=== PATIENT | female | born 1960 | race Caucasian/White ===

== ENCOUNTER 2018-04-05 07:44 | Inpatient (IN) ==
[2018-04-05] MEDS ORDERED: Albuterol 2.5 MG/3 ML NEBULIZER IH ONE (08:08)
[2018-04-05] MEDS ORDERED: CeFAZolin Syr 2,000MG/20 ML 2,000 MG/20 ML SYRINGE IVPB ONE (08:08)
[2018-04-05] MEDS ORDERED: Ringers Solution, Lactated 1,000 ML IVC SCH (08:15)
[2018-04-05] MEDS ORDERED: Famotidine 20 MG/2 ML VIAL IVP ONE (08:36)
[2018-04-05] MEDS ORDERED: Gabapentin 300 MG CAPSULE PO ONE (08:37)
--- NOTE | 2018-04-05 09:15 | Anesthesia Evaluation PreOp ---
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 Significant HX Other Medical History: Thyroid, GERD Anesthesia History: No Prior Anesthetic Complications : No Alcohol Use: none Medications and Allergies Atenolol/Chlorthalidone [Tenoretic 100 Tablet] 1 tab PO DAILY 04/05/18 [History] Gabapentin [Neurontin] 600 mg PO TID 04/05/18 [History] Levothyroxine Sodium 25 mcg PO QAM 04/05/18 [History] Levothyroxine Sodium 75 mcg PO QPM 04/05/18 [History] Lidocaine [Lidocaine] 1 patch TD DAILY 04/05/18 [History] Lisinopril [Zestril] 20 mg PO DAILY 04/05/18 [History] Loratadine [Allergy Relief] 10 mg PO DAILY 04/05/18 [History] Multivit-Min/FA/Lycopen/Lutein [Adults 50+ Multivitamin Tablet] 1 tab PO DAILY 04/05/18 [History] [place]-3/Dha/Epa/Fish Oil [Fish Oil 1,000 mg Softgel] 1 cap PO DAILY 04/05/18 [ History] Oxybutynin [Ditropan] 5 mg PO BID 04/05/18 [History] SUMAtriptan Succinate [Imitrex] 100 mg PO Q2H PRN 04/05/18 [History] Tiotropium [place] [Spiriva Respimat] 1 puff IH DAILY 04/05/18 [History] Tizanidine HCl [Tizanidine HCl] 4 mg PO HS 04/05/18 [History] 3 Allergy/AdvReac Type Severity Reaction Status Date / Time No Known Allergies Allergy Verified 04/05/18 08:36 - Meds/Allergy Pre-op Review Medications Reviewed: Yes Allergies Reviewed: Yes Beta Blockers on Current Med List: No Anesthesia Results - Labs Laboratory Tests 04/01/18 04/01/18 04/01/18 12:20 12:20 12:20 Hgb 13.1 Hct 38.1 Plt Count 284 PT 11.5 INR 1.0 APTT 38.7 H Sodium 132 L Potassium 4.1 BUN 17 Creatinine 0.85 - Imaging EKG: report reviewed (SR) Anesthesia Exam O2 Sat Height 1.73 m Height 1.73 m Height 1.73 m Weight 92.079 kg Weight 92.079 kg Weight 92.079 kg O2 Sat by Pulse Oximetry 96 Vital Signs Temp Pulse Resp BP Pulse Ox 98.7 F 70 18 175/80 96 04/05/18 08:11 04/05/18 08:11 04/05/18 08:11 04/05/18 08:11 04/05/18 08:11 Height: 5'8 Weight: 203 lbs NPO (# of Hours): MN Pain Scale: 0 - HEENT Pupil (Motor): Pupils equal, EOMI Mallampati: III Teeth: Missing Oral Opening: Less than or equal to 3 - SALES CLERK FO[employer] LOC: Oriented SALES CLERK FOOD Motor: Normal RUE, Normal LUE, Normal RLE, Normal LLE, Normal Face SALES CLERK FO[employer] Sensory: Normal: RUE, LUE, RLE, LLE, Face - Cardiac Rhythm: Regular Murmur: None JVD: No Carotid Bruit: No - Pulmonary Breath Sounds: bilateral Clear Respiratory Effort: Symmetrical Anesthesia Assess/Plan ASA Score: 2 Modified [place]iny Scale for Level of Consciousness: Cooperative, oriented, and tranquil Anesthetic Plan: General, Regional Monitoring Plan: Standard Monitors Recovery Plan: PACU (Discussed GA and RA, agrees to proceed)
[2018-04-05] MEDS ORDERED: Lidocaine -MPF 4% 5 ML AMPUL ONE (09:32)
[2018-04-05] MEDS ORDERED: Lidocaine -MPF 2% 2 ML VIAL ONE (09:32)
[2018-04-05] MEDS ORDERED: Ondansetron 4 MG/2 ML VIAL ONE (09:32)
[2018-04-05] MEDS ORDERED: Dexamethasone 4 MG/ML VIAL ONE ×2 (09:32→09:37)
[2018-04-05] MEDS ORDERED: *HR* Succinylcholine 200 MG/10 ML VIAL IVP ONE (09:32)
[2018-04-05] MEDS ORDERED: *HR* Propofol 200 MG/20 ML VIAL IVP ONE ×2 (09:33→11:36)
[2018-04-05] MEDS ORDERED: *HR* FentaNYL (PF) 100 MCG/2 ML VIAL ONE ×2 (09:33→10:09)
[2018-04-05] MEDS ORDERED: *HR* Midazolam HCl 2 MG/2 ML VIAL ONE ×2 (09:33→10:09)
--- NOTE | 2018-04-05 09:35 | History & Physical Report ---
Date of Encounter: 04/05/18 Time of Encounter: 09:35 24 Hour HP Update - Instructions Instructions: If the History and Physical is less than 30 days old and was completed prior to A.M. admission and or procedure and has NOT been updated on calendar day of procedure please complete this update prior to performing procedure. - Update Patient reports changes in Medical Condition: No Changes in examination, assessment, or condition: No Changes in Medication: No Preop tests/diagnostics Reviewed: Yes Surgery Remains Indicated: Yes Consent for Planned Operative Procedure(s) Verified: Yes - Pre-Operative Checklist Preoperative Checklist Indicated: No Prophylactic Antibiotic Ordered: Yes Is VTE Prophylaxis Indicated?: Yes
[2018-04-05] MEDS ORDERED: Morphine Sulfate/PF 5mg/10mL Vial ONE (09:51)
[2018-04-05] MEDS ORDERED: ROPIVACAINE HCL/PF 0.5% 30 ML VIAL ONE (09:52)
[2018-04-05] MEDS ORDERED: Lidocaine -MPF 2% 5 ML VIAL ONE (10:12)
--- NOTE | 2018-04-05 10:38 | Anesthesia Procedures ---
Date of Encounter: 04/05/18 Time of Encounter: 09:15 Procedures: Anesthesia - Epidural/Spinal Patient ID/Chart reviewed: Yes Patient examined: Yes Consent Obtained: Yes Supplemental Oxygen: Nasal Cannula (2) Sedation: Versed (mg): 4 Sedation: Fentanyl (mcg): 100 Site Prep: Aseptic Technique, 0.5% Chlorhexidine/Alcohol Patient position: upright Local Anesthetic: Lidocaine 1% Amount of Local Anesthetic used: 5 Interspace Used: L4-L5 Blood: No CSF: Yes Paresthesia: No Spinal Needle Gauge: 22 Spinal Dose: 10 mg isobaric marcaine, duramorph 0.25mg Vitals + FHT's: Vital Signs/O2 Sat/Glucose, Most Current Temp Pulse Resp BP Pulse Ox 04/05/18 09:53 68 128/64 97 04/05/18 08:11 98.7 F 70 18 175/80 96
[2018-04-05] MEDS ORDERED: Propofol 500 MG/50 ML INFUS..BTL ONE (10:48)
[2018-04-05] MEDS ORDERED: *HR* OxyCODONE/APAP 5/325 TABLET PO PRN ×2 (11:22→14:28)
--- NOTE | 2018-04-05 11:35 | Orthopedic Operative Note ---
Date of procedure: 04/05/18 Pre-op diagnosis: Right knee arthritis Post-op diagnosis: same Procedure: Procedure: Right Total knee replacement Estimated blood loss: 200 cc Hardware: Metal and polyethylene replacement. Arthrex Femur: 6 Tibia:6 PS insert: 8 Patella:40 Exam Under anesthesia: Full flexion and extension no varus valgus instability Procedural Notes: Grade 4 arthritic changes medial compartment patellofemoral joint. Operative procedure: The patient was brought to the operating room and placed on the operating room table. After general anesthesia was administered the operative knee was examined. Findings were noted in the exam under anesthesia. The operative extremity was prepped and draped in sterile surgical fashion. The patient received IV antibiotics prior to skin incision. A standard midline incision was made centered over the patella. The incision was made through the skin and subcutaneous tissue. A medial parapatellar tendon approach was performed. Care was taken to preserve tissue along the medial aspect of the patella. And to protect the patella tendon. The deep MCL was released off the medial tibia. The infra patella fat pad was excised. Knee was brought into flexion. Patient noted to have grade 4 arthritic changes medial compartment and patellofemoral joint. The entry hole was made for the intramedullary femoral guide. The guide was seated in 6 degrees of valgus. Anterior cut was made followed by the distal cut. The ACL the PCL the medial and the lateral menisci were excised. The tibia was subluxed forward. The entry hole was made for the intramedullary tibial guide. Guide was seated to resect 2 mm off the more abnormal side. The knee was brought into flexion the distal femur was sized to a 6. The femoral guide was seated, the anterior cut was made followed by the posterior condylar cut, followed by the chamfer cuts. The finishing guide was seated the box cut was made and the lug holes were drilled. The tibia was sized to a 6, the tibial tray was seated and prepared with the large drill followed by the fin cutter. Trial reduction revealed full extension no varus valgus instability with the appropriate 8 PS Liz. The patella was everted and cut was made at the level of the insertion of the quadriceps and patella tendon. The patella was sized to a 40 the guide was seated and the lug holes are drilled. Trial reduction revealed excellent patella tracking. All trial components were removed all bony surfaces were irrigated. The tibia was cemented first followed by the femur. 8 PS Liz was seated and the knee was brought into full extension. The patella was cemented and held in place with the patellar holding clamp. After the cement had hardened, the knee sat for 2 minutes with a antibacterial solution. The knee was then irrigated out with 2 L of pulse irrigation. The PA close the knee. The extensor mechanism was closed with #2 FiberWire suture and #2 PDS suture. The subcutaneous tissue was then irrigated and closed deep with #1 PDS suture superficially with 0 PDS suture and skin was closed with skin lashawn. The patient was then placed in a sterile dressing and a postoperative brace extubated and transferred to recovery room in stable condition. Anesthesia: GETA Surgeon: Elpidio Hanna Was there an phys assistant present: No Estimated blood loss (cc): 200 Condition: stable Disposition: PACU
--- NOTE | 2018-04-05 12:46 | Anesthesia Evaluation Post Op ---
Date of Encounter: 04/05/18 Time of Encounter: 12:45 - Vital Signs Vital Signs: Vital Signs/O2 Sat/Glucose, Most Current Temp Pulse Resp BP Pulse Ox 04/05/18 12:38 97.0 F L 44 16 131/66 98 04/05/18 12:28 48 16 121/68 92 04/05/18 12:18 49 15 121/70 95 04/05/18 12:08 97.4 F L 67 15 111/74 94 04/05/18 09:53 68 128/64 97 - Lungs Lungs: Clear Ascult./Percussion - Airway Airway: Non-obstructed - Cardiovascular Regular Rate - Mental Status Mental Status: Alert & Oriented, Answers Appropriately - Pain Pain Scale: 0 - Nausea Vomiting Nausea Vomiting: Not Present - Hydration Hydration: Ice chips - Discharge PostOp Status: Transfer Patient to floor
--- NOTE | 2018-04-05 12:48 | Anesthesia Procedures ---
Date of Encounter: 04/05/18 Time of Encounter: 10:00 Procedures: Anesthesia - Nerve Block Procedure Date: 04/05/18 Time: 10:40 Pre-op Diagnosis: Rt Knee OA Surgical Procedure: Rt TKA Checklist: Correct Patient Identifier Correct side: Right Blood Thinner: No Monitor Applied: EKG, BP, Pulse Oximetry Supplemental Oxygen via Nasal Cannula (L/min): 2 Sedation: Versed (mg): 4 Sedation: Fentanyl (mcg): 100 Indication: Post Op Analgesia Pre-op Neuro Deficits: No Block Type: Other (Adductor Canal) Catheter placed: No Depth at skin (cm): 3 Sterile Technique: Yes Ultrasound used: Yes Anatomy identified: Yes Visual spread of Local: Yes Neuro Stimulation: No Blood on Needle Aspiration: No Smooth Injection of Local: Yes Pain with Injection of Local: No Prep: Chlorhexadine Needle: 21 x 100 mm Stimuplex Local: Tetracaine, Ropivacaine Volume (cc): 30 Number of Attempts: 1 Complications: None/effective block Vitals: Vital Signs/O2 Sat/Glucose, Most Current Temp Pulse Resp BP Pulse Ox 04/05/18 12:38 97.0 F L 44 16 131/66 98 04/05/18 12:28 48 16 121/68 92 04/05/18 12:18 49 15 121/70 95 04/05/18 12:08 97.4 F L 67 15 111/74 94 04/05/18 09:53 68 128/64 97
[2018-04-05 14:25] LABS: Hematocrit 40.5 % (35.3-44.9); Hemoglobin 13.8 g/dL (11.5-15.4)
[2018-04-05] MEDS ORDERED: Ondansetron 4 MG/2 ML VIAL IVP PRN (14:28)
[2018-04-05] MEDS ORDERED: SUMAtriptan succinate 50 MG TABLET PO PRN (14:28)
[2018-04-05] MEDS ORDERED: traMADol 50 MG TABLET PO PRN (14:28)
[2018-04-05] MEDS ORDERED: Sennosides 8.6 MG TABLET PO PRN (14:28)
[2018-04-05] MEDS ORDERED: Temazepam 15 MG CAPSULE PO PRN (14:28)
[2018-04-05] MEDS ORDERED: Naloxone 0.4 MG/ML INJ IVP PRN (14:28)
[2018-04-05] MEDS ORDERED: MOM Conc 10 ML UD.LIQ PO PRN (14:28)
[2018-04-05] MEDS: Gabapentin 300 MG CAPSULE PO SCH ×2 (15:58→21:08)
[2018-04-05] MEDS: Ringers Solution, Lactated 1,000 ML IVC SCH (15:58)
[2018-04-05] MEDS: *HR* Enoxaparin 30 MG/0.3 ML SYRINGE SQ SCH (17:05)
[2018-04-05] MEDS ORDERED: *HR* Enoxaparin 30 MG/0.3 ML SYRINGE SQ SCH (18:00)
[2018-04-05] MEDS ORDERED: tiZANidine 4 MG TABLET PO SCH (21:00)
[2018-04-05] MEDS: *HR* OxyCODONE Immed Rel 5 MG TABLET PO PRN (21:11)
[2018-04-06] MEDS: Nicotine 7 MG PATCH.TD24 TD SCH ×2 (00:08→10:06)
[2018-04-06 01:52] LABS: Hematocrit 30.3 % (35.3-44.9)
[2018-04-06 01:55] LABS: Hemoglobin 9.9 g/dL (11.5-15.4)
[2018-04-06] MEDS: *HR* Enoxaparin 30 MG/0.3 ML SYRINGE SQ SCH (06:12)
[2018-04-06] MEDS ORDERED: Levothyroxine 25 MCG TABLET PO SCH (06:30)
--- NOTE | 2018-04-06 06:43 | Orthopedics Progress Note ---
Date of Encounter: 04/06/18 Time of Encounter: 06:43 - Assessment and Plan (1) Acute blood loss anemia Current Visit: Yes Status: Acute Subjective Interval history: Patient was seen this morning doing well without complaints. Afebrile vital signs stable. Operative extremity: Neurovascularly intact Dressing clean dry and intact Calves nontender Assessment and plan: Continue with postoperative care Hemoglobin 9.9 patient asymptomatic acute blood loss anemia discharge today Objective Vital signs: Vital Signs Temp Pulse Resp BP Pulse Ox 04/06/18 03:07 97.5 F L 78 16 115/68 94 04/05/18 23:53 98.1 F 73 16 107/61 92 04/05/18 19:52 97.7 F 69 16 111/68 93 04/05/18 13:50 97.3 F L 53 16 119/67 93 04/05/18 12:48 97.0 F L 51 16 125/77 99 04/05/18 12:38 97.0 F L 44 16 131/66 98 04/05/18 12:28 48 16 121/68 92 04/05/18 12:18 49 15 121/70 95 04/05/18 12:08 97.4 F L 67 15 111/74 94 04/05/18 09:53 68 128/64 97 04/05/18 08:11 98.7 F 70 18 175/80 96 Intake and Output 04/05/18 04/05/18 04/06/18 15:59 23:59 07:59 Intake Total 100 / 100 300 / 300 Output Total 400 / 400 300 / 300 Balance -300 / -300 0 / 0 Intake: IV Fluids 100 / 100 Ancef 2,000 MG In 0.9 % Sodium 100 / 100 Chloride 100 ML @ 200 mls/hr IVPB Q8HR [facility] Rx#:[id number] Oral 100 / 100 200 / 200 Output: Urine 300 / 300 Estimated Blood Loss 400 / 400 Other: Meal Dinner Percent of Meal Consumed 100% # Voids 1 Weight 92.079 kg - Labs CBC & BMP: 04/06/18 01:22 Labs: Abnormal lab results Hgb 9.9 g/dL (11.5-15.4) L D 04/06/18 01:22 Hct 30.3 % (35.3-44.9) L 04/06/18 01:22 - VTE Documentation of Mechanical Device: Venous foot pump, device Consult Discharge Plan - Plan Referrals: DAVID COVINGTON [Primary Care Provider] - Светлана Blackwell [Family Provider] - Prescriptions: Aspirin Enteric Coated [Aspirin EC] 325 mg PO BID #20 tablet.dr JustinDONNeno Immed Rel [Roxicodone 5 MG] 5 mg PO Q6HR PRN 7 Days #28 tablet PRN Reason: Severe Pain
[2018-04-06] MEDS ORDERED: ATENOLOL PO SCH (09:00)
[2018-04-06] MEDS ORDERED: CHLORTHALIDONE PO SCH (09:00)
[2018-04-06] MEDS ORDERED: Lisinopril 20 MG TABLET PO SCH (09:00)
[2018-04-06] MEDS ORDERED: Loratadine 10 MG TABLET PO SCH (09:00)
[2018-04-06] MEDS ORDERED: Multivit/Ca/Min/Fe/FA 1 TAB TABLET PO SCH (09:00)
[2018-04-06] MEDS ORDERED: NON-FORMULARY MEDICATION 1 EACH EACH (Omega-3/Dha/Epa/Fish Oil [Fish Oil 1,000 Mg Softgel] PO SCH (09:00)
[2018-04-06] MEDS ORDERED: [UNRECOGNIZED DRUG - OTHER] PO SCH (09:00)
[2018-04-06] MEDS ORDERED: NON-FORMULARY MEDICATION 1 EACH EACH (Multivit-Min/Fa/Lycopen/Lutein [Adults 50+ Multivita PO SCH (09:00)
[2018-04-06] MEDS ORDERED: Tiotropium 18 MCG inhalation IH SCH (10:00)
[2018-04-06] MEDS: *HR* OxyCODONE Immed Rel 5 MG TABLET PO PRN (10:06)
[2018-04-06] MEDS: Gabapentin 300 MG CAPSULE PO SCH ×2 (10:06→15:18)
[2018-04-06] MEDS: Ringers Solution, Lactated 1,000 ML IVC SCH (10:08)
[2018-04-06 12:10] VITALS: BP 113/60
--- NOTE | 2018-04-06 16:47 | Discharge Summary ---
Orders not resulted at time of discharge: Pending orders 04/05/18 09:17 US anesthesia pain block [US] Routine 04/05/18 11:35 Surgical Pathology [PTH] Routine Date of Encounter: 04/06/18 Time of Encounter: 13:00 - Discharge Diagnosis (1) Status post total knee replacement, right Priority: Primary Status: Acute (2) Arthritis of knee, right Priority: Primary Status: Acute (3) HTN (hypertension) Priority: Secondary Status: Chronic Qualifiers: Hypertension type: essential hypertension Qualified Code(s): I10 - Essential (primary) hypertension (4) Obesity Priority: Secondary Status: Chronic Qualifiers: Obesity type: unspecified obesity type Obesity classification: adult class 3 (BMI >= 40) Serious obesity comorbidity presence: without serious comorbidity Body mass index: unspecified BMI Qualified Code(s): E66.9 - Obesity, unspecified - Hospital Course Hospital course: Ms. Fairbanks is a 57 year old female, S/P Right TKR. Patient seen at bedside, without complaints. A&O x 3 Afebrile, vital signs stable. Labs reviewed. H/H - stable, asymptomatic - . Plan to repeat H/H on Thursday. Pain control: adequate Participating in PT. All questions and concerns addressed. Educated on use of incentive spirometer. Encouraged ambulation and proper hydration. Patient educated on post-operative restrictions and post-operative care. Assessment and plan: Continue with postoperative care Discharge plan: Home, discharge today with outpatient PT. Patient agreeable to discharge. - Time Spent with Patient Total time spent providing and/or coordinating discharge services: Less than 30 minutes - Discharge Medications Prescriptions: OxyCODONE Immed Rel [Roxicodone 5 MG] 5 mg PO Q6HR PRN 7 Days #28 tablet PRN Reason: Severe Pain Aspirin Enteric Coated [Aspirin EC] 325 mg PO BID #20 tablet. Home Medications: Aspirin Enteric Coated [Aspirin EC] 325 mg PO BID #20 tablet. 04/05/18 [Rx] Atenolol/Chlorthalidone [Tenoretic 100 Tablet] 1 tab PO DAILY 04/05/18 [History] Gabapentin [Neurontin] 600 mg PO TID 04/05/18 [History] Levothyroxine Sodium 25 mcg PO QAM 04/05/18 [History] Levothyroxine Sodium 75 mcg PO QPM 04/05/18 [History] Lidocaine [Lidocaine] 1 patch TD DAILY 04/05/18 [History] Lisinopril [Zestril] 20 mg PO DAILY 04/05/18 [History] Loratadine [Allergy Relief] 10 mg PO DAILY 04/05/18 [History] Multivit-Min/FA/Lycopen/Lutein [Adults 50+ Multivitamin Tablet] 1 tab PO DAILY 04/05/18 [History] [place]-3/Dha/Epa/Fish Oil [Fish Oil 1,000 mg Softgel] 1 cap PO DAILY 04/05/18 [ History] OxyCODONE Immed Rel [Roxicodone 5 MG] 5 mg PO Q6HR PRN 7 Days #28 tablet [Rx] Oxybutynin [Ditropan] 5 mg PO BID 04/05/18 [History] Tiotropium [place] [Spiriva Respimat] 1 puff IH DAILY 04/05/18 [History] Tizanidine HCl [Tizanidine HCl] 4 mg PO HS 04/05/18 [History] Allergies/Adverse Reactions: 3 Allergy/AdvReac Type Severity Reaction Status Date / Time sumatriptan [From Imitrex] Allergy Difficulty Verified 04/05/18 16:00 Breathing Date of admission: 04/05/18 13:48 Primary care physician: Abigail Mcdaniel Consults: 04/05/18 14:28 Consult to Occupational Therapy [CONS] Routine Comment: post shoulder surgery Reason for Consult: post shoulder surgery Does patient have active BEDREST order?: No Is patient medically & hemodynamically stable?: Yes Consult to Physical Therapy [CONS] Routine Comment: post shoulder surgery Reason for Consult: post shoulder surgery Does patient have active BEDREST order?: No Is patient medically & hemodynamically stable?: Yes RT Post Op Consult [CONS] Routine 04/05/18 17:02 Consult to Occupational Therapy [CONS] Routine Comment: Evaluate, develop and implement POC Reason for Consult: post knee surgery Does patient have active BEDREST order?: No Is patient medically & hemodynamically stable?: Yes Consult to Orthopedic Navigator [CONS] [CONS] Routine Consult to Physical Therapy [CONS] Routine Comment: Evaluate, develop and impliment POC Reason for Consult: post knee surgery Does patient have active BEDREST order?: No Is patient medically & hemodynamically stable?: Yes Consult to Brand Communications Manager [CONS] Routine Reason for SW Consult: post op joint replacement - VTE Documentation of Mechanical Device: Venous foot pump, device Labs on day of discharge: Labs from last 24 hours 04/06/18 01:22 Hgb 9.9 L D Hct 30.3 L - Impressions ITS Impressions Knee X-Ray 04/05/18 07:34 IMPRESSION: 1. Right knee arthroplasty with no immediate complications. D/ / Jayme Jackson MD / Jayme Jackson MD Interpreting Provider: Jayme Jackson MD - Patient Status Disposition: Home, Self-Care Condition: Fair Functional capacity at discharge: uses cane/walker Overall status at discharge: patient is back to baseline - Discharge Instructions Follow Up With: Abigail Mcdaniel [Primary Care Provider] - Светлана Blackwell [Family Provider] - - Diet and Activity Activity: as per physical therapy Diet: advance to your usual diet
== END 2018-04-06 15:39 | disposition home or self-care (01) | DRG 302 ==
LOC: SAMDAY 07:44 → 3NENU 13:48
PROVIDERS: ADMIT Orthopaedic Surgery; ATTEND Orthopaedic Surgery

== ENCOUNTER 2021-02-23 11:46 | Observation (INO) ==
[2021-02-23] MEDS ORDERED: Naloxone 0.4 MG/ML INJ IVP PRN (15:00)
[2021-02-23] MEDS: 0.9 % Sodium Chloride 1,000 ML IVC SCH (15:19)
[2021-02-23] MEDS: Ondansetron 4 MG/2 ML VIAL IVP PRN (15:19)
[2021-02-23 16:05] LABS: Hematocrit 31.8 % (35.3-44.9); Hemoglobin 10.1 g/dL (11.5-15.4)
[2021-02-23] MEDS: Pantoprazole 40 MG VIAL IVP SCH (16:33)
[2021-02-23] MEDS ORDERED: *HR* HYDROcodone/Acet 5/325 mg TABLET PO ONE (17:00)
[2021-02-23] MEDS ORDERED: Acetaminophen 325 MG TABLET PO PRN (18:42)
[2021-02-23] MEDS ORDERED: Sucralfate 1 GM TABLET PO SCH (21:00)
[2021-02-23] MEDS ORDERED: Melatonin 3 MG TABLET PO SCH (21:00)
[2021-02-24] MEDS: 0.9 % Sodium Chloride 1,000 ML IVC SCH (03:37)
[2021-02-24] MEDS: Pantoprazole 40 MG VIAL IVP SCH (05:08)
[2021-02-24 05:53] LABS: Basophils # 0.1 K/mcL (0.0-0.2); Basophils % 1.1 %; Eosinophils # 0.1 K/mcL (0.0-0.6); Eosinophils % 1.9 %; Hematocrit 33.1 % (35.3-44.9); Hemoglobin 10.7 g/dL (11.5-15.4); Immature Granulocytes % 0.3 % (0-4); Lymphocytes # 1.9 K/mcL (0.6-4.6); Lymphocytes % 27.4 %; Mean Corpuscular HGB Conc 32.3 g/dL (31.6-35.5); Mean Corpuscular Hemoglobin 32.7 pg (28.0-33.3); Mean Corpuscular Volume 101.2 fL (83.0-100.0); Mean Platelet Volume 10.6 fL (9.4-12.4); Monocytes # 0.4 K/mcL (0.0-1.3); Monocytes % 5.4 %; Neutrophils # 4.5 K/mcL (1.6-8.9); Platelet Count 366 K/mcL (140-400); Red Blood Count 3.27 M/mcL (3.82-4.97); Red Cell Distribution Width 12.4 % (11.5-14.5); Segmented Neutrophils % 63.9 %
[2021-02-24 06:12] LABS: BUN/Creatinine Ratio 18 (6-26); Blood Urea Nitrogen 10 mg/dL (8-23); Calcium 9.2 mg/dL (8.6-10.3); Carbon Dioxide 22 mEq/L (23-29); Chloride 109 mEq/L (98-107); Glucose 81 mg/dL (70-105); Osmolality,Calculated 284 (280-300); Potassium 3.8 mEq/L (3.5-5.1); Sodium 138 mEq/L (136-145); eGFR For African Americans > 60 (> 60); eGFR For Non-African Americans > 60 (> 60)
[2021-02-24] MEDS ORDERED: *HR* HYDROcodone/Acet 5/325 mg TABLET PO ONE (08:28)
[2021-02-24] MEDS ORDERED: Lidocaine -MPF 2% 2 ML VIAL ONE (09:53)
[2021-02-24] MEDS ORDERED: Tiotropium 10 INH DOSE IH SCH (10:00)
[2021-02-24 12:41] VITALS: BP 125/60
[2021-02-24] MEDS ORDERED: Nicotine 21 MG PATCH.TD24 TD SCH (12:45)
[2021-02-24] MEDS: Ondansetron 4 MG/2 ML VIAL IVP PRN (14:03)
== END 2021-02-24 16:58 | disposition home or self-care (01) ==
LOC: 3BNU
PROVIDERS: ADMIT Internal Medicine; ATTEND Internal Medicine
PROC: ENDOEBX (2021-02-24 09:40)